=== PATIENT | male | born 1960 | race Hispanic/Latino ===

== ENCOUNTER 2017-10-08 15:36 | Outpatient (CLI) | payer BC ==
--- NOTE | 2017-10-08 20:09 | XRay Report ---
FINAL REPORT EXAM: XR HIP 2-3V LT HISTORY: LEFT HIP PAIN TECHNIQUE: AP pelvis PRIORS: None. FINDINGS: There is left hip prosthesis present. Components are intact and demonstrate normal positioning. There is some adjacent periarticular calcification present. No acute fractures are identified and there is no evidence for widening of the pubic symphysis or the SI joints and IMPRESSION: Left hip prosthesis No acute abnormality identified
== END 2017-10-08 15:37 | disposition home or self-care (01) ==
LOC: SPVIMAG 15:36
PROVIDERS: ATTEND Orthopaedic Surgery Sports Medicine
DX: M25.552 Pain in left hip (principal); Z96.642 Presence of left artificial hip joint